=== PATIENT | female | born 1940 | race Caucasian/White ===

== ENCOUNTER 2016-12-01 16:57 | Inpatient (IN) | payer OTHER ==
[~2016-12-01] VITALS: Ht 154.9 cm; Wt 79.1 kg
[~2016-12-01 16:57] MED LIST: AMBIEN10 MG PO; COZAAR50 MG PO; DICYCLOMINE HCL10 MG; DICYCLOMINE HCL10 MG PO; DIPHENOX/ATROPI1 TA1; ECO81 PO; ELA10 PO; GLU500 PO; KEFLEX500 MG PO; LAC PO; LOM PO; METFORMIN HCL1000 MG PO; METOPROLOL SUCC25 M1 PO; MULTI-VITAMINS1 TAB PO; NEU100 PO; PRI20 PO; PROMETHAZINE D118 M1; PROMETHAZINE12.5 M4 PO; SYN1 PO; TYL325 PO; ZES10 PO; ZOC10 PO
[2016-12-01 20:11] LABS: BASOPHIL % 0.3 % (0-2); PLATELET COUNT 330 x10^3mcL (130-400)
[2016-12-01 20:12] LABS: RED CELL DISTRIBUTION WIDTH 15.3 % (11.5-14.5)
[2016-12-01 20:26] LABS: CALCIUM 9.2 mg/dL (8.5-10.1); CARBON DIOXIDE 27.3 mmol/L (21-32); CHLORIDE SERUM 107 mmol/L (98-107); CREATININE SERUM 0.6 mg/dL (0.6-1.0); GLUCOSE SERUM 146 mg/dL (74-106); POTASSIUM SERUM 4.2 mmol/L (3.5-5.1); SODIUM SERUM 144 mmol/L (136-145)
[2016-12-01 20:32] LABS: ALBUMIN 3.7 g/dL (3.4-5.0); ALKALINE PHOSPHATASE 95 U/L (46-116); ALT/SGPT 28 U/L (14-59); AST/SGOT 31 U/L (15-37); BILIRUBIN TOTAL 0.29 mg/dL (0.20-1.00); TOTAL PROTEIN, SERUM 7.5 g/dL (6.4-8.2)
[2016-12-01 20:33] LABS: AMYLASE 340 U/L (25-115)
[2016-12-01 20:44] LABS: LIPASE 4436 IU/L (73-393)
[2016-12-01 21:49] LABS: UA SPECIFIC GRAVITY 1.015 (1.005-1.035); microscopic required? YES; urine erythrocyte NEGATIVE (NEGATIVE)
[2016-12-01] MEDS ORDERED: DOK COLACE100 MG (22:17)
[2016-12-01] MEDS ORDERED: NEXIUM40 MG PO (22:17)
[2016-12-01] MEDS ORDERED: DEXILANT60 M1 PO (22:18)
[2016-12-01 22:25] LABS: CHOLESTEROL/HDL RATIO 2.6; MAGNESIUM 1.7 mg/dL (1.8-2.4); PHOSPHOROUS 3.8 mg/dL (2.5-4.9)
[2016-12-01 22:30] LABS: T3 TOTAL 1.06 ng/mL
[2016-12-01 22:35] LABS: FREE T4 1.32 ng/dL (0.76-1.46); FREE THYROXINE INDEX 4.2 ug/dL (1.4-4.5); T4(THYROXINE) 11.8 ug/dL (4.7-13.3)
[2016-12-01 22:49] VITALS: BP 131/69
[2016-12-02 06:50] LABS: AMYLASE 115 U/L (25-115); CARBON DIOXIDE 27.7 mmol/L (21-32); CHLORIDE SERUM 111 mmol/L (98-107); CREATININE SERUM 0.6 mg/dL (0.6-1.0); GLUCOSE SERUM 140 mg/dL (74-106); LIPASE 406 IU/L (73-393); MAGNESIUM 1.6 mg/dL (1.8-2.4); PHOSPHOROUS 2.9 mg/dL (2.5-4.9); SODIUM SERUM 144 mmol/L (136-145)
[2016-12-02 07:09] VITALS: BP 142/59
[2016-12-02 07:14] LABS: BASOPHIL % 0.4 % (0-2); PLATELET COUNT 277 x10^3mcL (130-400)
[2016-12-02 07:16] LABS: RED CELL DISTRIBUTION WIDTH 15.4 % (11.5-14.5)
[2016-12-02 09:05] VITALS: BP 140/78
[2016-12-02 14:33] VITALS: BP 149/63
[2016-12-02 18:34] VITALS: BP 145/73
[2016-12-02 21:29] VITALS: BP 139/53
[2016-12-03 06:02] VITALS: BP 127/43
[2016-12-03 06:03] LABS: CALCIUM 8.3 mg/dL (8.5-10.1); CARBON DIOXIDE 25.9 mmol/L (21-32); CHLORIDE SERUM 112 mmol/L (98-107); CREATININE SERUM 0.5 mg/dL (0.6-1.0); GLUCOSE SERUM 125 mg/dL (74-106); MAGNESIUM 1.9 mg/dL (1.8-2.4); PHOSPHOROUS 3.2 mg/dL (2.5-4.9); POTASSIUM SERUM 3.9 mmol/L (3.5-5.1); SODIUM SERUM 149 mmol/L (136-145)
[2016-12-03 06:14] LABS: BASOPHIL % 0.5 % (0-2); PLATELET COUNT 266 x10^3mcL (130-400)
[2016-12-03 06:56] LABS: RED CELL DISTRIBUTION WIDTH 15.6 % (11.5-14.5)
[2016-12-03 09:39] VITALS: BP 155/75
[2016-12-03] MEDS ORDERED: LIPI10 PO (11:58)
[2016-12-03 12:44] VITALS: BP 155/79
== END 2016-12-03 13:50 | disposition home or self-care (01) | DRG 438 ==
LOC: ED 16:57 → MU 21:29 → DU 21:29 → MU 12-03 06:45
PROVIDERS: Family Medicine; Specialist; ADMIT Family Medicine
DX: K85.90 Acute pancreatitis without necrosis or infection, unspecified (principal); N17.0 Acute kidney failure with tubular necrosis; N39.0 Urinary tract infection, site not specified; D68.69 Other thrombophilia; E87.0 Hyperosmolality and hypernatremia; E11.51 Type 2 diabetes mellitus with diabetic peripheral angiopathy without gangrene; E11.65 Type 2 diabetes mellitus with hyperglycemia; S30.0XXA Contusion of lower back and pelvis, initial encounter; E83.42 Hypomagnesemia; K21.9 Gastro-esophageal reflux disease without esophagitis; N20.0 Calculus of kidney; M06.9 Rheumatoid arthritis, unspecified; E03.9 Hypothyroidism, unspecified; I10 Essential (primary) hypertension; E87.8 Other disorders of electrolyte and fluid balance, not elsewhere classified; Z79.82 Long term (current) use of aspirin; Z79.84 Long term (current) use of oral hypoglycemic drugs; Z85.030 Personal history of malignant carcinoid tumor of large intestine; W18.39XA Other fall on same level, initial encounter; Y93.89 Activity, other specified; Y92.89 Other specified places as the place of occurrence of the external cause
CPT/HCPCS: 82962; 83880; 84439; G0480; J0696; J7030; J7042; Q0092

== ENCOUNTER 2017-05-17 14:43 | Inpatient (IN) | payer OTHER ==
[~2017-05-17] VITALS: Ht 154.9 cm; Wt 73.5 kg
[~2017-05-17 14:43] MED LIST changes: +COZAAR100 MG PO; -COZAAR50 MG PO; +DEXILANT60 M1 PO; +DOK COLACE100 MG; +LIPI10 PO; -METOPROLOL SUCC25 M1 PO; +NEXIUM40 MG PO; +TOPROL XL25 MG PO
[2017-05-17 15:14] LABS: BASOPHIL % 0.4 % (0-2); PLATELET COUNT 294 x10^3mcL (130-400)
[2017-05-17 15:15] LABS: RED CELL DISTRIBUTION WIDTH 15.1 % (11.5-14.5)
[2017-05-17 15:34] LABS: CALCIUM 9.1 mg/dL (8.5-10.1); CARBON DIOXIDE 30.3 mmol/L (21-32); CHLORIDE SERUM 103 mmol/L (98-107); CREATININE SERUM 0.8 mg/dL (0.6-1.0); GLUCOSE SERUM 162 mg/dL (74-106); POTASSIUM SERUM 3.8 mmol/L (3.5-5.1); SODIUM SERUM 142 mmol/L (136-145)
[2017-05-17 15:40] LABS: ALBUMIN 3.9 g/dL (3.4-5.0); ALKALINE PHOSPHATASE 96 U/L (46-116); ALT/SGPT 24 U/L (14-59); AST/SGOT 35 U/L (15-37); BILIRUBIN TOTAL 0.5 mg/dL (0.20-1.00)
[2017-05-17 15:42] LABS: AMYLASE 242 U/L (25-115)
[2017-05-17 15:45] LABS: UA SPECIFIC GRAVITY 1.025 (1.005-1.035); microscopic required? YES; urine erythrocyte NEGATIVE (NEGATIVE)
[2017-05-17 16:01] LABS: LIPASE 6751 IU/L (73-393)
[2017-05-17] MEDS ORDERED: LORAZEPAM1 MG PO (16:10)
[2017-05-17] MEDS ORDERED: OMEPRAZOLE40 M1 PO (16:10)
[2017-05-17] MEDS ORDERED: FERROUS SULFAT325 M2 PO (16:11)
[2017-05-17] MEDS ORDERED: XYZAL5 M1 PO (16:11)
[2017-05-17] MEDS ORDERED: LOPERAMIDE PO (16:12)
[2017-05-17 16:40] LABS: MAGNESIUM 2.6 mg/dL (1.8-2.4); PHOSPHOROUS 3.5 mg/dL (2.5-4.9)
[2017-05-17 16:41] LABS: CHOLESTEROL/HDL RATIO 2.6
[2017-05-17 16:51] LABS: FREE T4 1.28 ng/dL (0.76-1.46); FREE THYROXINE INDEX 4.2 ug/dL (1.4-4.5)
[2017-05-17 17:34] VITALS: BP 159/86
[2017-05-17 17:45] LABS: T3 TOTAL 0.98 ng/mL
[2017-05-17 21:41] VITALS: BP 188/97
[2017-05-18 06:06] LABS: BASOPHIL % 0.1 % (0-2); PLATELET COUNT 290 x10^3mcL (130-400)
[2017-05-18 06:16] LABS: CALCIUM 8.5 mg/dL (8.5-10.1); CARBON DIOXIDE 30.7 mmol/L (21-32); CHLORIDE SERUM 102 mmol/L (98-107); CREATININE SERUM 0.8 mg/dL (0.6-1.0); GLUCOSE SERUM 201 mg/dL (74-106); MAGNESIUM 3.2 mg/dL (1.8-2.4); PHOSPHOROUS 3.3 mg/dL (2.5-4.9); POTASSIUM SERUM 3.7 mmol/L (3.5-5.1); SODIUM SERUM 138 mmol/L (136-145)
[2017-05-18 06:23] LABS: RED CELL DISTRIBUTION WIDTH 15.1 % (11.5-14.5)
[2017-05-18 06:40] VITALS: BP 175/87
[2017-05-18 07:47] VITALS: BP 148/70
[2017-05-18 09:42] VITALS: BP 145/59
[2017-05-18 14:18] VITALS: BP 136/63
[2017-05-18 17:20] VITALS: BP 157/76
[2017-05-18 21:29] VITALS: BP 129/55
[2017-05-19 05:40] VITALS: BP 128/55
[2017-05-19 07:01] LABS: BASOPHIL % 0.4 % (0-2)
[2017-05-19 07:09] LABS: CALCIUM 7.8 mg/dL (8.5-10.1); CARBON DIOXIDE 24.2 mmol/L (21-32); CHLORIDE SERUM 111 mmol/L (98-107); CREATININE SERUM 0.4 mg/dL (0.6-1.0); GLUCOSE SERUM 97 mg/dL (74-106); MAGNESIUM 2.6 mg/dL (1.8-2.4); POTASSIUM SERUM 4.2 mmol/L (3.5-5.1); SODIUM SERUM 141 mmol/L (136-145)
[2017-05-19 07:30] VITALS: BP 126/60
[2017-05-19 08:07] LABS: RED CELL DISTRIBUTION WIDTH 15.4 % (11.5-14.5)
[2017-05-19 08:09] LABS: PLATELET COUNT 201 x10^3mcL (130-400)
[2017-05-19 11:24] LABS: AMYLASE 67 U/L (25-115); LIPASE 168 IU/L (73-393)
[2017-05-19 14:18] VITALS: BP 136/57
[2017-05-19 17:48] VITALS: BP 160/68
[2017-05-19 18:55] VITALS: BP 135/55
[2017-05-19 20:48] VITALS: BP 162/60
[2017-05-20 06:10] VITALS: BP 152/55
[2017-05-20 06:10] LABS: BASOPHIL % 0.3 % (0-2); PLATELET COUNT 261 x10^3mcL (130-400)
[2017-05-20 06:41] LABS: ALKALINE PHOSPHATASE 106 U/L (46-116); ALT/SGPT 51 U/L (14-59); AST/SGOT 36 U/L (15-37); BILIRUBIN DIRECT 0.13 mg/dL (0.0-0.2); BILIRUBIN TOTAL 0.4 mg/dL (0.20-1.00); CALCIUM 8.6 mg/dL (8.5-10.1); CARBON DIOXIDE 26.3 mmol/L (21-32); CHLORIDE SERUM 109 mmol/L (98-107); CREATININE SERUM 0.5 mg/dL (0.6-1.0); GLUCOSE SERUM 139 mg/dL (74-106); MAGNESIUM 2.4 mg/dL (1.8-2.4); POTASSIUM SERUM 3.8 mmol/L (3.5-5.1); SODIUM SERUM 144 mmol/L (136-145); TOTAL PROTEIN, SERUM 6.5 g/dL (6.4-8.2)
[2017-05-20 06:42] LABS: ALBUMIN 2.8 g/dL (3.4-5.0)
[2017-05-20 07:00] LABS: RED CELL DISTRIBUTION WIDTH 14.6 % (11.5-14.5)
[2017-05-20 09:38] VITALS: BP 149/62
[2017-05-20 13:09] VITALS: BP 169/76
[2017-05-20 17:33] VITALS: BP 160/56
[2017-05-20 18:31] VITALS: BP 150/68
[2017-05-20 21:47] VITALS: BP 149/59
[2017-05-21 05:57] VITALS: BP 148/61
[2017-05-21 06:06] LABS: BASOPHIL % 0.3 % (0-2); PLATELET COUNT 281 x10^3mcL (130-400)
[2017-05-21 06:08] LABS: CALCIUM 8.9 mg/dL (8.5-10.1); CARBON DIOXIDE 26.9 mmol/L (21-32); CHLORIDE SERUM 110 mmol/L (98-107); CREATININE SERUM 0.5 mg/dL (0.6-1.0); GLUCOSE SERUM 122 mg/dL (74-106); POTASSIUM SERUM 4.1 mmol/L (3.5-5.1); SODIUM SERUM 142 mmol/L (136-145)
[2017-05-21 06:35] LABS: RED CELL DISTRIBUTION WIDTH 14.8 % (11.5-14.5)
[2017-05-21 09:32] VITALS: BP 97/59
[2017-05-21 10:28] VITALS: BP 154/71
[2017-05-21 18:22] VITALS: BP 154/54
[2017-05-21 21:22] VITALS: BP 120/47
[2017-05-22 05:33] VITALS: BP 110/56
[2017-05-22 06:08] LABS: BASOPHIL % 0.3 % (0-2); PLATELET COUNT 289 x10^3mcL (130-400)
[2017-05-22 06:13] LABS: RED CELL DISTRIBUTION WIDTH 14.8 % (11.5-14.5)
[2017-05-22 06:34] LABS: CALCIUM 8.4 mg/dL (8.5-10.1); CHLORIDE SERUM 110 mmol/L (98-107); CREATININE SERUM 0.5 mg/dL (0.6-1.0); GLUCOSE SERUM 105 mg/dL (74-106); POTASSIUM SERUM 3.6 mmol/L (3.5-5.1); SODIUM SERUM 144 mmol/L (136-145)
[2017-05-22 10:06] VITALS: BP 131/55
[2017-05-22 16:13] VITALS: BP 131/55
== END 2017-05-22 16:46 | disposition home or self-care (01) | DRG 438 ==
LOC: ED 14:43 → DU 15:53 → MU 15:53 → DU 17:03 → MU 05-20 09:31
PROVIDERS: Emergency Medicine; Family Medicine; Family Medicine Sports Medicine; Internal Medicine; Internal Medicine Gastroenterology; ADMIT Family Medicine
PROC: 0F798ZZ Dilation of Common Bile Duct, Via Natural or Artificial Opening Endoscopic (ICD-10-PCS; principal; 2017-05-21 07:30)
PROC: BF10YZZ Fluoroscopy of Bile Ducts using Other Contrast (ICD-10-PCS; 2017-05-21 07:30)
DX: K85.90 Acute pancreatitis without necrosis or infection, unspecified (principal); N17.0 Acute kidney failure with tubular necrosis; E43 Unspecified severe protein-calorie malnutrition; N39.0 Urinary tract infection, site not specified; D68.69 Other thrombophilia; K83.8 Other specified diseases of biliary tract; E11.51 Type 2 diabetes mellitus with diabetic peripheral angiopathy without gangrene; E11.65 Type 2 diabetes mellitus with hyperglycemia; M43.16 Spondylolisthesis, lumbar region; R80.9 Proteinuria, unspecified; E83.41 Hypermagnesemia; E03.9 Hypothyroidism, unspecified; E66.9 Obesity, unspecified; M06.9 Rheumatoid arthritis, unspecified; Z92.3 Personal history of irradiation; Z68.30 Body mass index [BMI] 30.0-30.9, adult; Z79.84 Long term (current) use of oral hypoglycemic drugs; Z85.030 Personal history of malignant carcinoid tumor of large intestine
CPT/HCPCS: 43262; 74181; 82962; 83880; 84439; 87046; 87046-59; 90732; C1769; J1170; J1610; J1956; J2060; J2175; J2250; J2270; J2405; J2704; J2765; J3010; J3490; J7030; Q0092; Q9967

== ENCOUNTER 2017-06-13 18:39 | Emergency (ER) | payer OTHER ==
[~2017-06-13 18:39] MED LIST changes: +FERROUS SULFAT325 M2 PO; +LOPERAMIDE PO; +LORAZEPAM1 MG PO; +OMEPRAZOLE40 M1 PO; +XYZAL5 M1 PO
[2017-06-13 22:16] VITALS: BP 122/55
== END 2017-06-13 22:00 | disposition home or self-care (01) ==
LOC: ED 18:39
DX: S13.4XXA Sprain of ligaments of cervical spine, initial encounter (principal); S33.5XXA Sprain of ligaments of lumbar spine, initial encounter; S23.3XXA Sprain of ligaments of thoracic spine, initial encounter; I10 Essential (primary) hypertension; E11.9 Type 2 diabetes mellitus without complications; Z79.84 Long term (current) use of oral hypoglycemic drugs; V43.92XA Unspecified car occupant injured in collision with other type car in traffic accident, initial encounter; Y93.89 Activity, other specified; Y92.89 Other specified places as the place of occurrence of the external cause; Y99.8 Other external cause status
CPT/HCPCS: 72072

== ENCOUNTER 2017-12-24 14:21 | Emergency (ER) | payer OTHER ==
[~2017-12-24] VITALS: Ht 154.9 cm; Wt 72.6 kg
[~2017-12-24 14:21] MED LIST changes: +AMITRIPTYLINE H10 M3 PO; +ATORVASTATIN CA40 M1 PO; +DOK COLACE100 MG PO; +MIRALAX17 GM/Dose PO; +PAN PO; +PROLIA60 MG/ML SC
[2017-12-24 14:28] VITALS: Ht 154.9 cm; Wt 72.6 kg
[2017-12-24 16:01] VITALS: BP 147/76
== END 2017-12-24 16:01 | disposition home or self-care (01) ==
LOC: ED 14:21
DX: L50.9 Urticaria, unspecified (principal); I10 Essential (primary) hypertension; E11.9 Type 2 diabetes mellitus without complications
CPT/HCPCS: J1200; J2930

== ENCOUNTER 2017-12-25 17:55 | Emergency (ER) | payer OTHER ==
[~2017-12-25] VITALS: Ht 152.4 cm; Wt 75.7 kg
[2017-12-25 20:02] VITALS: BP 139/75
== END 2017-12-25 20:02 | disposition home or self-care (01) ==
LOC: ED 17:55
DX: L50.9 Urticaria, unspecified (principal); I10 Essential (primary) hypertension; E11.9 Type 2 diabetes mellitus without complications; Z86.39 Personal history of other endocrine, nutritional and metabolic disease
CPT/HCPCS: J0171; J1200

== ENCOUNTER 2018-10-30 15:13 | Emergency (ER) | payer OTHER ==
[~2018-10-30] VITALS: Ht 154.9 cm; Wt 75.3 kg
[2018-10-30 15:17] VITALS: Ht 154.9 cm; Wt 75.3 kg
[2018-10-30 15:45] LABS: BASOPHIL % 0.3 % (0-2); PLATELET COUNT 331 x10^3mcL (130-400); RED CELL DISTRIBUTION WIDTH 14.1 % (11.5-14.5)
[2018-10-30 15:53] LABS: CALCIUM 8.6 mg/dL (8.5-10.1); CARBON DIOXIDE 25.7 mmol/L (21-32); CHLORIDE SERUM 98 mmol/L (98-107); CREATININE SERUM 0.9 mg/dL (0.6-1.0); GLUCOSE SERUM 120 mg/dL (74-106); POTASSIUM SERUM 4.7 mmol/L (3.5-5.1); SODIUM SERUM 130 mmol/L (136-145)
[2018-10-30 15:57] LABS: ALBUMIN 3.7 g/dL (3.4-5.0); ALKALINE PHOSPHATASE 69 U/L (46-116); ALT/SGPT 22 U/L (14-59); AST/SGOT 21 U/L (15-37); BILIRUBIN TOTAL 0.27 mg/dL (0.20-1.00); LIPASE 230 IU/L (73-393); TOTAL PROTEIN, SERUM 7.3 g/dL (6.4-8.2)
[2018-10-30 16:45] VITALS: BP 134/87
== END 2018-10-30 16:45 | disposition home or self-care (01) ==
LOC: ED 15:13
PROVIDERS: Emergency Medicine
DX: R10.13 Epigastric pain (principal); R14.0 Abdominal distension (gaseous); R11.0 Nausea; I10 Essential (primary) hypertension; E11.9 Type 2 diabetes mellitus without complications; Z90.49 Acquired absence of other specified parts of digestive tract; Z98.890 Other specified postprocedural states
CPT/HCPCS: 36415; J7030

== ENCOUNTER 2019-02-24 19:16 | Inpatient (IN) | payer OTHER, MEDICAID ==
[~2019-02-24] VITALS: Ht 157.5 cm; Wt 80.4 kg
[2019-02-24 19:22] VITALS: Ht 157.5 cm; Wt 80.4 kg
--- NOTE | 2019-02-24 19:32 | NUR ---
PT BIB AMBULANCE FOR C/O OF
--- NOTE | 2019-02-24 19:34 | NUR ---
PT BIB [facility]ANCE FOR C/O OF UPPER QUADRANT PAIN THAT STARTED APPROX 1 HR AGO. PT STATES THAT HER ABD PAIN STARTED AFTER SHE ATE BEANS AND A BANANA. PT ALSO REPORTS VOMITING X10. PT RATES HER PAIN A 10/10. PT DENIES ANY FEVERS OR DYSURIA. PT IS A/O X4. RESP ARE EQUAL AND UNLABORED. NO ACUTE DISTRESS NOTED. FAMILY AT BEDSIDE.
[2019-02-24 20:03] LABS: BASOPHIL % 0.3 % (0-2); PLATELET COUNT 310 x10^3mcL (130-400)
[2019-02-24 20:04] LABS: RED CELL DISTRIBUTION WIDTH 15.4 % (11.5-14.5)
[2019-02-24 20:08] LABS: CALCIUM 9.9 mg/dL (8.5-10.1); CARBON DIOXIDE 27.7 mmol/L (21-32); CHLORIDE SERUM 97 mmol/L (98-107); CREATININE SERUM 0.7 mg/dL (0.6-1.0); GLUCOSE SERUM 214 mg/dL (74-106); POTASSIUM SERUM 3.7 mmol/L (3.5-5.1); SODIUM SERUM 136 mmol/L (136-145)
[2019-02-24 20:13] LABS: ALBUMIN 3.7 g/dL (3.4-5.0); ALKALINE PHOSPHATASE 212 U/L (46-116); ALT/SGPT 236 U/L (14-59); AST/SGOT 714 U/L (15-37); BILIRUBIN TOTAL 0.61 mg/dL (0.20-1.00); TOTAL PROTEIN, SERUM 7.7 g/dL (6.4-8.2)
[2019-02-24 20:25] LABS: LIPASE 3132 IU/L (73-393)
[2019-02-24] MEDS ORDERED: TOPROL XL25 MG PO (21:03)
[2019-02-24] MEDS ORDERED: DICYCLOMINE HCL10 MG PO (21:03)
[2019-02-24] MEDS ORDERED: DICLOFENAC SODI75 MG PO (21:03)
[2019-02-24] MEDS ORDERED: GABAPENTIN100 M2 PO (21:04)
[2019-02-24] MEDS ORDERED: CEPHALEXIN500 MG PO (21:04)
[2019-02-24] MEDS ORDERED: AZULFIDINE500 MG PO (21:04)
[2019-02-24] MEDS ORDERED: BD LACTINEX1.4 MG PO (21:04)
[2019-02-24] MEDS ORDERED: LINZESS145 MC1 PO (21:05)
--- NOTE | 2019-02-24 21:14 | NUR ---
REPORT GIVEN TO KARLOS GAMEZ TO ASSUME CARE OF PT.
[2019-02-24 22:06] VITALS: BP 162/61
--- NOTE | 2019-02-24 22:10 | NUR ---
RECEIVED PT FROM ED VIA AGUS. ORIENTED PT TO ROOM AND SURROUNDINGS. IV NOTED TO RW PATENT AND INTACT. INSTRUCTED PT ON THE USE OF CALL LIGHT FOR ASSISTANCE. ENDORSED PT TO PRIMARY NURSE ALEXX
--- NOTE | 2019-02-24 22:15 | NUR ---
PT RECEIVED FROM RESOURCE NURSE. PT A/O X4, THAI SPEAKING, ABLE TO MAKE NEEDS KNOWN, FAMILY AT BEDSIDE. MED-SURG, DENIES ANY CP/PRESSURE. PULSES PALAPBLE, NO EDEMA PRESENT. BREATHING IS EVEN AND UNLABORED ON RA, NO RESP DISTRESS NOTED. ABD SOFT AND DISTENDED, BOWEL TONES ACTIVE X4 QUAD, DENIES N/V, PT REPORTS HAVING CONSTIPATION AND LBM-02/23/19. VOIDS FREELY, BRP. AMBULATORY WITH SLOW GAIT. SKIN IS WARM AND DRY, INTACT. PT REPORTS MILD ABD PAIN, PT STATES PAIN IS TOLERABLE AND REFUSED PAIN MEDS AT THIS TIME. IV TO RW, FLUSHED, PATENT AND INTACT, SITE WNL. ORIENTED PT TO ROOM AND CALL LIGHT. BED IN LOWEST SETTING, BED ALARM ON, SIDE RAILS UP X2, CALL LIGHT WITHIN REACH. WILL CONT TO MONITOR.
[2019-02-25 02:05] LABS: CHOLESTEROL/HDL RATIO 2.8; MAGNESIUM 1.6 mg/dL (1.8-2.4); PHOSPHOROUS 4.3 mg/dL (2.5-4.9)
[2019-02-25 02:12] LABS: FREE T4 1.22 ng/dL (0.76-1.46); FREE THYROXINE INDEX 3.5 ug/dL (1.4-4.5); T4(THYROXINE) 10.4 ug/dL (4.7-13.3)
[2019-02-25 02:58] LABS: T3 TOTAL 0.93 ng/mL
--- NOTE | 2019-02-25 02:58 | NUR ---
PT RESTING IN BED WITH EYES CLOSED, BUT IS EASILY AROUSABLE. BREATHING IS EVEN AND UNLABORED, NO RESP DISTRESS NOTED. NO S/S OF PAIN OBSERVED. FAMILY AT BEDSIDE. IVF INFUSING WELL, SITE FREE FROM REDNESS OR SWELLING. NO ACUTE DISTRESS OBSERVED. BED ALARM ON, CALL LIGHT WITHIN REACH. WILL CONT TO MONITOR.
[2019-02-25 04:11] LABS: microscopic required? NO
[2019-02-25 04:34] LABS: urine erythrocyte NEGATIVE (NEGATIVE)
[2019-02-25 04:46] LABS: AMPHETAMINE QUAL UR NONE DETECTED (See below)
--- NOTE | 2019-02-25 05:25 | NUR ---
PT SLEPT WELL THROUGHOUT THE EVENING. BREATHING IS EVEN AND UNLABORED, NO RESP DISTRESS NOTED. PT DENIES HAVING ANY PAIN AT THIS TIME. PT REMAINS NPO EXCEPT MEDS, NPO SIGN POSTED. NO ACUTE CHANGES ENCOUNTERED DURING SHIFT. ALL NEEDS MET AND ANTICIPATED. PT COMPLIANT WITH NURSING CARE. DAUGHTER AT BEDSIDE. IVF INFUSING WELL, SITE WNL. CALL LIGHT WITHIN REACH. WILL ENDORSE CARE TO AM NURSE.
[2019-02-25 06:02] VITALS: BP 145/61
[2019-02-25 06:25] LABS: ALKALINE PHOSPHATASE 177 U/L (46-116); ALT/SGPT 217 U/L (14-59); AST/SGOT 357 U/L (15-37); BILIRUBIN TOTAL 0.46 mg/dL (0.20-1.00); CALCIUM 9.2 mg/dL (8.5-10.1); CARBON DIOXIDE 25.4 mmol/L (21-32); CHLORIDE SERUM 104 mmol/L (98-107); CREATININE SERUM 0.5 mg/dL (0.6-1.0); GLUCOSE SERUM 135 mg/dL (74-106); LIPASE 431 IU/L (73-393); MAGNESIUM 1.9 mg/dL (1.8-2.4); POTASSIUM SERUM 4.1 mmol/L (3.5-5.1); SODIUM SERUM 140 mmol/L (136-145); TOTAL PROTEIN, SERUM 6.9 g/dL (6.4-8.2)
[2019-02-25 06:29] LABS: ALBUMIN 3.3 g/dL (3.4-5.0)
[2019-02-25 06:40] LABS: BASOPHIL % 0.3 % (0-2); PLATELET COUNT 288 x10^3mcL (130-400)
[2019-02-25 06:50] LABS: RED CELL DISTRIBUTION WIDTH 15.4 % (11.5-14.5)
--- NOTE | 2019-02-25 07:20 | NUR ---
PT AMBULATORY TO RESTROOM, GAIT SLOW/STEADY. VOID X1. LAYING IN BED NOW. AA/OX4. NO SOB ON ROOM AIR. NO COMPLAINT OF PAIN. DENIES ABD. PAIN AT THIS TIME. NO CHEST PAIN. IV WNL TO RIGHT WRIST, IV FLUIDS FLOWING. PT CALM/COOPERATIVE. INSTRUCTED TO USE CALL LIGHT TO CALL FOR ASSISTANCE. VERBALIZED UNDERSTANDING. SPEAKS TURKISH. FALL PREC IN PLACE. BED IN LOW POSITION. CALL LIGHT WITHIN REACH. WILL CONTINUE TO MONITOR.
--- NOTE | 2019-02-25 07:24 | NUR ---
PT IN NO ACUTE DISTRESS. CONTINUITY OF CARE ENDORSED TO RADHA GAMEZ. ALL QUESTIONS AND CONCERNS ADDRESSED.
[2019-02-25 08:18] VITALS: BP 148/60
[2019-02-25 12:12] VITALS: BP 133/60
--- NOTE | 2019-02-25 12:18 | NUR ---
PT LAYING IN BED. AA/OX4. DENIES ABD. PAIN. NO N/V. NO SOB ON ROOM AIR. CALM/COOPERATIVE. IV WNL TO RIGHT WRIST, IV FLUIDS FLOWING. NO CHEST PAIN. NO N/V. NO FEVER. NO CHILLS. FAMILY AT BEDSIDE. BED IN LOW POSITION. CALL LIGHT WITHIN REACH. WILL CONTINUE TO MONITOR.
[2019-02-25 16:57] VITALS: BP 142/57
--- NOTE | 2019-02-25 18:26 | NUR ---
PT SITTING IN CHAIR AT SIDE OF BED. AMBULATORY WITH FULL ROM, GAIT STEADY/SLOW. NO N/V. DENIES ABD. PAIN. TOLERATING CARDIAC DIET WELL. NO CHEST PAIN. IV WNL TO RIGHT WRIST. IV FLUIDS FLOWING. CALM/COOPERATIVE. FAMILY AT BEDSIDE. BED IN LOW POSITION. CALL LIGHT WITHIN REACH. WILL ENDORSE TO ONCOMING SHIFT.
--- NOTE | 2019-02-25 19:10 | NUR ---
RECIEVED PT IN NO ACUTE DISTRESS. AOX4. MED SURG. BREATHING E/U. BOWEL SOUNDS ACTIVE X 4 QUADRANTS. ADMIT FOR ABD PAIN, DENIES ALL PAIN AT THIS TIME. IV TO R WRIST, PATENT AND INFUSING. NPO AT MIDNIGHT FOR POSSIBLE PROCEDURE. FAMILY AT BEDSIDE. BED IN LOWEST POSITION, 2 SIDE RAILS UP, CALL LIGHT IN REACH. INSTRUCTED TO CALL FOR ASSISTANCE.
[2019-02-25 20:48] VITALS: BP 127/61
--- NOTE | 2019-02-26 01:33 | NUR ---
RESTING IN BED WITH EYES CLOSED. BREATHING E/U ON RA. NO ACUTE DISTRESS NOTED. WILL CONTINUE TO MONITOR.
[2019-02-26 05:38] VITALS: BP 135/60
[2019-02-26 07:10] LABS: BASOPHIL % 0.5 % (0-2); PLATELET COUNT 281 x10^3mcL (130-400)
[2019-02-26 07:32] LABS: RED CELL DISTRIBUTION WIDTH 15.4 % (11.5-14.5)
[2019-02-26 07:37] LABS: CALCIUM 8.5 mg/dL (8.5-10.1); CARBON DIOXIDE 24.9 mmol/L (21-32); CHLORIDE SERUM 108 mmol/L (98-107); CREATININE SERUM 0.5 mg/dL (0.6-1.0); GLUCOSE SERUM 157 mg/dL (74-106); SODIUM SERUM 142 mmol/L (136-145)
--- NOTE | 2019-02-26 08:17 | NUR ---
AAO TIMES 4. MED SURG PATIENT. LUNGS CTA. NO SOB. O2 SAT ON RA 94%. BS'S ACTIVE TIMES 4. SINGH WITH SLIGHT GENERALIZED WEAKNESS. NPO FOR ERCP, CONSENTS SIGNED. IV SITE RIGHT WRIST 20 SYLVIA PATENT, CDI. COOPERATIVE. DENIES DISCOMFORT. SHE WAS SITTING IN A CHAIR AT BEDSIDE, BUT SHE IS NOW LAYING IN BED.
[2019-02-26 10:46] VITALS: BP 162/83
--- NOTE | 2019-02-26 10:46 | NUR ---
CAME BACK FROM ERCP AT 1046, VS'S STABLE. AAO TIMES 4. NO C/O PAIN. DAUGHTER AT BEDSIDE.
--- NOTE | 2019-02-26 16:09 | NUR ---
C/O NAUSEA. GAVE REGLAN 10 MG IVP AT 1609. AT 1639 SHE STATED HER NAUSEA IS BETTER.
[2019-02-26 17:00] VITALS: BP 136/57
--- NOTE | 2019-02-26 18:00 | NUR ---
AAO TIMES 4. DAUGHTER AT BEDSIDE. NO C/O PAIN. NO SOB. IV SITE RIGHT WRIST PATENT, CDI. COOPERATIVE. C/O MULTIPLE LOOSE STOOLS, SHE REFUSED THE LAXATIVE PILLS. SITTING IN CHAIR AT BEDSIDE, BRP ASSIST.
--- NOTE | 2019-02-26 20:12 | NUR ---
PT IS AWAKE AND ORIENTED X4. PT MAC[place]ON[place] SPEAKING BUT ABLE TO LET NEEDS BE KNOWN. PT FAMILY AT BEDSIDE AND ASSISTS WITH PT CARE AT TIMES. PT REPORTS LINDSAY, AND MEDICATED WITH PRN TYLENOL. PT DENIES CP OR PRESSURE AT THIS TIME. PT HAS PALPABLE PULSES BILAT ALL EXTREMITIES. NO EDEMA NOTED AT THIS TIME. PT HAS CLEAR LUNG SOUNDS. RESPIRATIONS EVEN AND UNLABORED ON ROOM AIR. PT DENIES SOB. PT HAS ACTIVE BOWEL SOUNDS AND REPORTS LOOSE STOOL/DIRRHEA. PT VOIDS FREELY ON OWN. PT HAS GEN WEAKNESS BUT IS AMBULATORY WITH MIN ASSIST. PT SKIN CDI. PT HAS IV TO RIGHT WRIST. NO SIGNS OF DISTRESS. FAMILY AT BEDSIDE AT THIS TIME. NO SIGNS OF DISTRESS. WILL CONTINUE TO MONITOR.
[2019-02-26 20:34] VITALS: BP 149/60
--- NOTE | 2019-02-26 23:15 | NUR ---
PT STATES LINDSAY HAD SUBSIDED. PT FAMILY AT BEDSIDE. PT IN BED AT THIS TIME RESTING. NO SIGNS OF PAIN OR DISCOMFORT. NO SIGNS OF DISTRESS. WILL CONITNUE TO MONITOR.
--- NOTE | 2019-02-26 23:45 | NUR ---
PT TEMP 100.7. COOLING MEASURES IN PLACE. DR. GIOVANNI ROMERO. WILL CONTINUE TO MONITOR.
--- NOTE | 2019-02-27 00:05 | NUR ---
DR. GIOVANNI ROMERO FOR PT TEMPERATURE. WILL CONTINUE TO MONITOR.
--- NOTE | 2019-02-27 00:12 | NUR ---
PT TEMP 101.0. COOLING MEASURES REMAIN IN PLACE. PT FAMILY AT BEDSIDE. WILL CONTINUE TO MONITOR.
--- NOTE | 2019-02-27 00:22 | NUR ---
DR. NOLASCO NOTIFIED OF PT FEVER. WILL CONTINUE TO MONITOR.
--- NOTE | 2019-02-27 01:00 | NUR ---
PT TEMP GOING DOWN AT THIS TIME 99.7 WITH COOLING MEASURES. PT RECEIVED NEW ORDER OF MOTRIN FOR FEVER. WILL CONTINUE TO MONITOR.
--- NOTE | 2019-02-27 03:30 | NUR ---
PT TEMP 97.5 ORAL AT THIS TIME. COOLING MEASURES REMAIN IN PLACE. WILL CONTINUE TO MONITOR.
--- NOTE | 2019-02-27 05:23 | NUR ---
URINE SPECIMAN COLLECTED AT THIS TIME.
[2019-02-27 05:38] VITALS: BP 125/49
[2019-02-27 06:37] LABS: BASOPHIL % 0.2 % (0-2); PLATELET COUNT 284 x10^3mcL (130-400)
--- NOTE | 2019-02-27 06:41 | NUR ---
PT IS CALM AND COOPERATIVE WITH NURSING CARE. PT DENIES PAIN OR DISCOMFORT AT THIS TIME. PT SLEPT ON AND OFF THROUGHOUT THE EVENING. ALL PT NEEDS MET. PT FAMILY REMAINS AT BEDSIDE. NO SIGNS OF DISTRESS. WILL ENDORSE TO DAY NURSE.
[2019-02-27 07:01] LABS: ALBUMIN 3.2 g/dL (3.4-5.0); ALKALINE PHOSPHATASE 238 U/L (46-116); ALT/SGPT 377 U/L (14-59); AST/SGOT 548 U/L (15-37); BILIRUBIN TOTAL 1.6 mg/dL (0.20-1.00); CALCIUM 8.7 mg/dL (8.5-10.1); CARBON DIOXIDE 23.9 mmol/L (21-32); CHLORIDE SERUM 105 mmol/L (98-107); CREATININE SERUM 0.7 mg/dL (0.6-1.0); GLUCOSE SERUM 106 mg/dL (74-106); LIPASE 1253 IU/L (73-393); MAGNESIUM 1.6 mg/dL (1.8-2.4); PHOSPHOROUS 3.1 mg/dL (2.5-4.9); POTASSIUM SERUM 3.6 mmol/L (3.5-5.1); SODIUM SERUM 141 mmol/L (136-145); TOTAL PROTEIN, SERUM 6.8 g/dL (6.4-8.2)
[2019-02-27 07:12] LABS: RED CELL DISTRIBUTION WIDTH 15.8 % (11.5-14.5)
[2019-02-27 07:36] LABS: microscopic required? YES; urine erythrocyte NEGATIVE (NEGATIVE)
--- NOTE | 2019-02-27 08:26 | NUR ---
AAO TIMES 4. MED SURG PATIENT. LUNGS CTA. NO SOB. O2 SAT ON RA 93%. BS'S ACTIVE TIMES 4. SINGH, BRP MINIMAL ASSIST. FAMILY MEMBER AT BEDSIDE, SUPPORTIVE AND CARING. NO C/O PAIN. DENIES DIARRHEA TODAY, BUT SHE STATES SHE HAD TOO MUCH DIARRHEA YESTERDAY AFTER THE LAXATIVES SHE WAS GIVEN ORDERED BY MD. PERIPHERAL PULSES PALPABLE. TRACE EDEMA BLE.
[2019-02-27 09:19] VITALS: BP 141/61
[2019-02-27] MEDS ORDERED: MAC100 PO (16:41)
[2019-02-27 17:51] VITALS: BP 161/84
--- NOTE | 2019-02-27 18:36 | NUR ---
AAO TIMES 4. NO C/O PAIN. NO SOB. FAMILY PRESENT, SUPPORTIVE. NO C/O DIARRHEA. IV SITE CDI. WATCHING TV WITH DAUGHTER.
[2019-02-27 18:52] VITALS: BP 161/84
--- NOTE | 2019-02-27 20:21 | NUR ---
DC PAPERWORKS GIVEN.DAUGHTER AT BEDSIDE AND SON IN LAW.SIGNED PAPERWORKS,HEPLOCK REMOVEED.WILL BE DC HOME PRIVATE CAR VIA WHEELCHAIR BOUBACAR JEAN
--- NOTE | 2019-02-27 20:28 | NUR ---
WHEELED DOWN BY TED,DAUGHTER WITH HER,IN STABLE CONDITION.
== END 2019-02-27 20:28 | disposition home or self-care (01) | DRG 388 ==
LOC: ED 19:16 → MU 19:54
PROVIDERS: Emergency Medicine; Internal Medicine; Internal Medicine Gastroenterology; ADMIT General Practice
PROC: 0FC98ZZ Extirpation of Matter from Common Bile Duct, Via Natural or Artificial Opening Endoscopic (ICD-10-PCS; principal; 2019-02-26 09:00)
DX: K56.51 Intestinal adhesions [bands], with partial obstruction (principal); K85.90 Acute pancreatitis without necrosis or infection, unspecified; S22.43XA Multiple fractures of ribs, bilateral, initial encounter for closed fracture; N39.0 Urinary tract infection, site not specified; E11.40 Type 2 diabetes mellitus with diabetic neuropathy, unspecified; K80.50 Calculus of bile duct without cholangitis or cholecystitis without obstruction; E03.9 Hypothyroidism, unspecified; I10 Essential (primary) hypertension; F32.9 Major depressive disorder, single episode, unspecified; Z95.0 Presence of cardiac pacemaker; Z79.82 Long term (current) use of aspirin; Z68.31 Body mass index [BMI] 31.0-31.9, adult; Z79.84 Long term (current) use of oral hypoglycemic drugs; Z85.038 Personal history of other malignant neoplasm of large intestine; W18.39XA Other fall on same level, initial encounter; Y93.89 Activity, other specified; Y92.89 Other specified places as the place of occurrence of the external cause
CPT/HCPCS: 43262; 82962; 83880; 84439; 97116-GP; 97530-GP; C1769; G0378; J1610; J2270; J2405; J2704; J2765; J7030; J7042; Q0092; Q9967